=== PATIENT | female | born 1965 | race Caucasian/White ===

== ENCOUNTER 2017-02-12 01:55 | Emergency (ER) | payer BC, OTHER ==
[2017-02-12 02:05] VITALS: BP 166/97
--- NOTE | 2017-02-12 02:22 | ERNOTE ---
Upper Extremity HPI - Narrative Date of Service: 02/12/17 - General Extremities Pain Location: elbow: left Time Seen by Provider: 02/12/17 01:58 Source: patient Exam Limitations: no limitations - Immun/Allergies/Home Medications Immunizations: IMMUNIZATION HX Immunizations Up to Date Yes History of Influenza Vaccine No Hx Pneumococcal Vaccination No Allergies/Adverse Reactions: Allergies Allergy/AdvReac Type Severity Reaction Status Date / Time No Known Allergies Allergy Verified 09/29/15 11:47 Home Medications: HOME MEDICATIONS Atenolol [Tenormin] 50 mg PO DAILY 09/03/14 [Last Taken Unknown] Dextroamphetamine/Amphetamine [Adderall 20 mg Tablet] 40 mg PO DAILY 09/03/14 [ Last Taken Unknown] Escitalopram Oxalate [Lexapro] 10 mg PO DAILY 09/03/14 [Last Taken Unknown] clonazePAM [Klonopin] 1 mg PO HS 09/03/14 [Last Taken Unknown] rOPINIRole HCL [Requip] 1 mg PO DAILY 09/03/14 [Last Taken Unknown] HYDROcodone/ACETAMINOPHEN [[place] 5-325 Tablet] 1 tab PO Q4H PRN #20 tab [Last Taken Unknown] Lisinopril/Hydrochlorothiazide [Lisinopril-Hctz 10-12.5 mg Tab] 1 each PO DAILY 02/12/17 [Last Taken Unknown] - History of Present Illness Narrative: This is a 51-year-old female 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 The patient stumbled and landed on her left elbow. She experienced immediate pain and difficulty with straightening her elbow. She came into the emergency department. She did not hit her head. She did not lose consciousness. She did not injure any other part of her body. Again she has not been drinking or using illicit substances Occurred: just prior to arrival Location of Incident: other Severity: severe - Street Method of Injury: Reports: fell, direct blow Reason for Fall: Reports: lost balance Loss of Consciousness: Reports: no loss of consciousness Modifying Factors - (Improves): Reports: other Modifying Factors - (Worsens): Reports: movement Associated Symptoms: Denies: tingling, weakness, numbness distally, loss of feeling, loss of power (rt arm), loss of power (lt arm) Other Injuries: Reports: none Review of Systems - Review of Systems Constitutional: Present: no symptoms reported EYE: Present: no symptoms reported ENT: Present: no symptoms reported Respiratory: Present: no symptoms reported Cardiology: Present: no symptoms reported Gastrointestinal/Abdominal: Present: no symptoms reported Genitourinary: Present: no symptoms reported Musculoskeletal: Present: other - significant pain and swelling to the left elbow. Difficulty with range of motion secondary to pain Skin: Present: no symptoms reported Neurological: Present: no symptoms reported Endocrine: Present: no symptoms reported Hematologic/Lymphatic: Present: no symptoms reported Psych: Present: no symptoms reported All Other Systems: All systems neg except as marked - Patient's Past Medical History Patient History - Medical: Diabetes Type 2, Kidney stone Patient History - Cardiac/Respiratory: Hypertension Patient History - Cancer: No Hx of Cancer Patient History - Surgical Procedures: Appendectomy, Cholecystectomy, Hysterectomy, Other Patient History - Other: None - Social History Living Situations: home Abuse History: No History of abuse Psych History: No pertinent hx Smoking Status: Never smoker Alcohol Use: occasionally Drug Use: none - Immunizations Immunizations Up to Date: Yes Hx Pneumococcal Vaccination: No History of Influenza Vaccine: No Physical Exam - Physical Exam General Appearance: Present: wd/wn, alert, no apparent distress Head Exam: Present: normal inspection, no evidence of injury Eye Exam: Normal inspection: bilateral, PERRL: bilateral, EOMI: bilateral Ears, Nose, Throat: Present: normal ENT inspection Neck: Present: normal inspection, nontender Respiratory: Present: no respiratory distress, normal breath sounds, no accessory muscle use, chest nontender, lungs clear Cardiovascular/Chest: Present: regular rate, rhythm, no murmur, normal peripheral pulses Gastrointestinal/Abdominal: Present: normal bowel sounds, nontender, nondistended, soft, no organomegaly Back Exam: Present: normal inspection, normal range of motion, no CVA tenderness , no vertebral tenderness Extremity Exam: Present: other - patient has swelling around the left elbow. She has an ecchymoses developing in the antecubital fossa. She has tenderness proximally to residential up the humerus and distally to residential down the radius and ulna. No obvious crepitus. Distal neurovascular intact. Intrinsic and extrinsic muscles of the hand are intact. Difficulty with supination, pronation , extension, flexion at the elbow Neurological Exam: Present: alert, oriented, normal mood/affect, no motor/ sensory deficits Skin Exam: Present: other - ecchymoses as described in the extremity exam Lymphatic Exam: Present: no adenopathy ED Progress - Vital Signs Vital Signs: Vital Signs 02/12/17 02:02 Temperature 36.5 C Pulse Rate 74 Respiratory 18 Rate Blood Pressure 166/97 O2 Sat by Pulse 97 Oximetry - Progress/Reassessment Chief Complaint: Upper Extremity Injury/Problem Plan - Plan Plan: Clinically after looking at this patient's elbow I am concerned about fracture or more likely ruptured bicipital tendon. She has a fairly classic distribution of ecchymoses for ruptured tendon. She is in too much discomfort to get her to flex and cannot resist much. I will wait until I get the x-ray results before I make further decisions. She will need some pain medicine. Departure Clinical Impression: Contusion, elbow, with forearm, Biceps tendon rupture - Departure Disposition: Home self-care Condition: Stable Instructions: Elbow Contusion Additional Instructions: As we discussed, I do not see any definite fractures. This is a preliminary reading of your x-rays. A radiologist will read them officially in the next 24 hours and he will be notified if there is any discrepancy. He can take the prescribed [place] to help with severe pain. Keep the sling on until you see orthopedics for follow-up. I highly suspect that you have ruptured biceps tendon. This will likely need a specialist such as orthopedic surgeon to fix. I Y Eddie orthopedic surgeon and set up a follow-up appointment as soon as possible. Make sure you tell them you were seen in the emergency department and had x-rays done. If you develop new worrisome symptoms such as color change. Hand, decreased sensation in her fingers or inability to move her hand, or any new worrisome symptoms Y he to return immediately to the emergency department. Referrals: Ranjith Scott, PAC [[facility]] - Prescriptions: HYDROcodone/ACETAMINOPHEN [[place] 5-325 Tablet] 1 tab PO Q4H PRN #20 tab PRN Reason: Pain
[2017-02-12] MEDS ORDERED: HYDROcodone/ACETAMINOPHEN 1 EACH TABLET PO ONE (02:27)
[2017-02-12] MEDS ORDERED: HYDROcodone/ACETAMINOPHEN 1 EACH TABLET ONE (02:36)
== END 2017-02-12 02:46 | disposition home or self-care (01) ==
LOC: ER 01:55
DX: S46.212A Strain of muscle, fascia and tendon of other parts of biceps, left arm, initial encounter (principal); S50.12XA Contusion of left forearm, initial encounter; Z87.442 Personal history of urinary calculi; I10 Essential (primary) hypertension; W01.198A Fall on same level from slipping, tripping and stumbling with subsequent striking against other object, initial encounter; Y92.414 Local residential or business street as the place of occurrence of the external cause